=== PATIENT | female | born 1995 | race Caucasian/White ===

== ENCOUNTER 2018-09-02 10:26 | Emergency (ER) | payer OTHER ==
[2018-09-02] MEDS: KETOROLAC 30 MG/ML VIAL (J1885) IV (11:25)
[2018-09-02] MEDS: diphenhydrAMINE INJ 50MG/ML VIAL (J1200) IV (11:25)
[2018-09-02] MEDS: METOCLOPRAMIDE INJ 10MG/2ML VIAL (J2765) IV (11:26)
== END 2018-09-02 13:08 | disposition home or self-care (01) ==
LOC: M ED 10:26
DX: G40.909 Epilepsy, unspecified, not intractable, without status epilepticus (principal); R51 Headache; Z79.2 Long term (current) use of antibiotics; Z79.899 Other long term (current) drug therapy; Z88.8 Allergy status to other drugs, medicaments and biological substances; Z91.018 Allergy to other foods
CPT/HCPCS: J1200

== ENCOUNTER 2018-11-04 01:15 | Emergency (ER) | payer OTHER ==
[~2018-11-04] VITALS: Ht 157.5 cm; Wt 68.2 kg
[~2018-11-04 01:15] MED LIST: KEPP500T13; METO1TAB7; TRI-TAB PO
[2018-11-04] MEDS ORDERED: NORT10CA2 (01:24)
[2018-11-04] MEDS ORDERED: NS 1,000 ML IV ONE (02:00)
[2018-11-04 02:04] LABS: HEMOGLOBIN 13.5 g/dl (12.0-15.5); MEAN CORPUSCULAR HEMOGLOBIN 31.4 pg (27.0-33.0); MEAN CORPUSCULAR HGB CONC 34.6 g/dl (32.0-36.5); MEAN CORPUSCULAR VOLUME 90.7 fl (80.0-96.0); PLATELET COUNT, AUTOMATED 246 10^3/uL (150-450); WHITE BLOOD COUNT 7.8 10^3/uL (4.0-10.0)
[2018-11-04 02:13] LABS: BLOOD UREA NITROGEN 7 MG/DL (7-18); CARBON DIOXIDE LEVEL 19 MEQ/L (21-32); CHLORIDE LEVEL 109 MEQ/L (98-107); CREATININE FOR GFR 0.84 MG/DL (0.55-1.30); GLOMERULAR FILTRATION RATE > 60.0 (>60); GLUCOSE, FASTING 97 MG/DL (70-100); POTASSIUM SERUM 3.9 MEQ/L (3.5-5.1); SODIUM LEVEL 140 MEQ/L (136-145)
[2018-11-04 02:21] LABS: HCG, SERUM QUALITATIVE NEGATIVE (NEGATIVE)
[2018-11-04 03:07] LABS: ATYPICAL LYMPH 5 % (0-5); EOSINOPHILS 1 % (0-5); LYMPHOCYTES 60 % (16-52); MONOCYTES 5 % (0-8); NEUTROPHILS 29 % (35-75)
[2018-11-04 03:08] LABS: PLATELET ESTIMATE NORMAL (NORMAL); TEAR DROP CELLS 1+
[2018-11-04 03:32] VITALS: BP 100/62
--- NOTE | 2018-11-04 07:53 | ECGEPIP ---
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
== END 2018-11-04 03:33 | disposition home or self-care (01) ==
LOC: EDBD 01:15 → M ED 01:15
DX: R56.9 Unspecified convulsions (principal); R00.0 Tachycardia, unspecified; G43.809 Other migraine, not intractable, without status migrainosus; Z79.899 Other long term (current) drug therapy; Z91.018 Allergy to other foods

== ENCOUNTER 2018-11-14 22:28 | Emergency (ER) | payer OTHER ==
[~2018-11-14] VITALS: Ht 157.5 cm; Wt 68.2 kg
[~2018-11-14 22:28] MED LIST changes: +NORT10CA2
[2018-11-14] MEDS ORDERED: NS 1,000 ML IV ONE (23:15)
[2018-11-14] MEDS ORDERED: METOCLOPRAMIDE INJ 10MG/2ML VIAL (J2765) IV ONE (23:15)
[2018-11-14 23:32] LABS: BASO % 0.1 % (0.0-1.0); EOS # 0.1 10^3/uL (0.0-0.50); EOS % 0.4 % (0.0-3.0); HEMATOCRIT 41.4 % (36.0-47.0); HEMOGLOBIN 14.1 g/dl (12.0-15.5); LYMPH # 1.1 10^3/uL (1.5-6.5); LYMPH % 8.2 % (24.0-44.0); MEAN CORPUSCULAR HEMOGLOBIN 31.3 pg (27.0-33.0); MEAN CORPUSCULAR HGB CONC 34.1 g/dl (32.0-36.5); MEAN CORPUSCULAR VOLUME 91.8 fl (80.0-96.0); MONO # 0.7 10^3/uL (0.0-0.8); MONO % 5.2 % (0.0-5.0); NEUTROPHILS % 85.7 % (36.0-66.0); PLATELET COUNT, AUTOMATED 277 10^3/uL (150-450); RED BLOOD COUNT 4.51 10^6/uL (4.00-5.40); WHITE BLOOD COUNT 13.9 10^3/uL (4.0-10.0)
[2018-11-15] LABS: ALBUMIN 4.2 GM/DL (3.2-5.2); ALT/SGPT 20 U/L (12-78); BILIRUBIN,DIRECT 0.1 MG/DL (0.0-0.2); BILIRUBIN,TOTAL 0.6 MG/DL (0.2-1.0); BLOOD UREA NITROGEN 9 MG/DL (7-18); CARBON DIOXIDE LEVEL 25 MEQ/L (21-32); CHLORIDE LEVEL 105 MEQ/L (98-107); CREATININE FOR GFR 0.85 MG/DL (0.55-1.30); GLOMERULAR FILTRATION RATE > 60.0 (>60); GLUCOSE, FASTING 105 MG/DL (70-100); LIPASE 56 U/L (73-393); POTASSIUM SERUM 4.1 MEQ/L (3.5-5.1); SODIUM LEVEL 138 MEQ/L (136-145); TOTAL PROTEIN 7.7 GM/DL (6.4-8.2)
[2018-11-15 00:29] LABS: HCG, SERUM QUALITATIVE NEGATIVE (NEGATIVE)
[2018-11-15] MEDS ORDERED: NS 1,000 ML IV ONE (01:00)
[2018-11-15 01:45] VITALS: BP 109/58
[2018-11-15] MEDS ORDERED: ZOFR4TAB14 PO (01:54)
== END 2018-11-15 02:06 | disposition home or self-care (01) ==
LOC: M ED 22:28
DX: K52.9 Noninfective gastroenteritis and colitis, unspecified (principal); E86.0 Dehydration; G40.909 Epilepsy, unspecified, not intractable, without status epilepticus; Z20.828 Contact with and (suspected) exposure to other viral communicable diseases; Z91.018 Allergy to other foods; Z79.899 Other long term (current) drug therapy
CPT/HCPCS: 80048; 80076; 83690; 84703; 85025; 96374; 99284; J2765

== ENCOUNTER 2019-01-21 12:04 | Emergency (ER) | payer OTHER ==
[~2019-01-21] VITALS: Ht 157.5 cm; Wt 70.9 kg
[~2019-01-21 12:04] MED LIST changes: +ZOFR4TAB14 PO
[2019-01-21] MEDS ORDERED: APTI1TAB4 (12:14)
[2019-01-21] MEDS ORDERED: TOPI25TA10 (12:14)
[2019-01-21 13:05] LABS: BASO % 0.4 % (0.0-1.0); HEMATOCRIT 39.8 % (36.0-47.0); HEMOGLOBIN 13.3 g/dl (12.0-15.5); LYMPH # 2.2 10^3/uL (1.5-6.5); LYMPH % 31.6 % (24.0-44.0); MEAN CORPUSCULAR HEMOGLOBIN 30.9 pg (27.0-33.0); MEAN CORPUSCULAR HGB CONC 33.4 g/dl (32.0-36.5); MEAN CORPUSCULAR VOLUME 92.3 fl (80.0-96.0); MONO # 0.4 10^3/uL (0.0-0.8); MONO % 5.6 % (0.0-5.0); NEUTROPHILS # 4.3 10^3/uL (1.8-7.7); NEUTROPHILS % 62.1 % (36.0-66.0); PLATELET COUNT, AUTOMATED 256 10^3/uL (150-450); RED BLOOD COUNT 4.31 10^6/uL (4.00-5.40)
[2019-01-21 13:31] LABS: ALT/SGPT 16 U/L (12-78); BILIRUBIN,TOTAL 0.3 MG/DL (0.2-1.0); BLOOD UREA NITROGEN 8 MG/DL (7-18); C REACTIVE PROTEIN QUANTITATIV 1.38 MG/DL (0.00-0.30); CALCIUM LEVEL 8.3 MG/DL (8.5-10.1); CARBON DIOXIDE LEVEL 26 MEQ/L (21-32); CHLORIDE LEVEL 106 MEQ/L (98-107); GLOMERULAR FILTRATION RATE > 60.0 (>60); GLUCOSE, FASTING 91 MG/DL (70-100); HCG, SERUM QUANTITATIVE < 1.0 MIU/ML; POTASSIUM SERUM 4.7 MEQ/L (3.5-5.1); SODIUM LEVEL 137 MEQ/L (136-145); TOTAL PROTEIN 7.6 GM/DL (6.4-8.2)
[2019-01-21] MEDS ORDERED: ISOVUE-370 76% 125ML VIAL (Q9967 PER ML) As Ordered ONE (13:55)
[2019-01-21] MEDS ORDERED: KETOROLAC 30 MG/ML VIAL (J1885) IV ONE (14:00)
[2019-01-21] MEDS ORDERED: ONDANSETRON 4MG/2ML VIAL (J2405) IV ONE (14:00)
[2019-01-21] MEDS ORDERED: DOXY100C37 PO ×2 (18:12→18:19)
[2019-01-21] MEDS ORDERED: IBUP-1022 PO ×2 (18:12→18:19)
[2019-01-21] MEDS ORDERED: cefTRIAXone SOD 250 MG VIAL (J0696) IM ONE (18:15)
[2019-01-21] MEDS ORDERED: LIDOCAINE 1% SDV 5 ML VIAL DILUENT ONE (18:15)
[2019-01-21 18:25] VITALS: BP 112/71
[2019-01-21] MEDS ORDERED: DOXYCYCLINE HYCLATE 100 MG TAB PO ONE (18:30)
[2019-01-21 19:09] LABS: CHLAMYDIA DNA AMPLIFICATION NEGATIVE (NEGATIVE); GC DNA AMPLIFICATION NEGATIVE (NEGATIVE)
--- NOTE | 2019-01-22 06:50 | REP ---
CT ABDOMEN AND PELVIS WITH CONTRAST: HISTORY: Bilateral lower abdominal pain. CONTRAST: Isovue 370, 100 mL. The liver, gallbladder, pancreas, spleen, adrenal glands, and kidneys are normal in appearance. There is no mass or adenopathy. A small amount of free fluid is present in the abdomen. The visualized lungs are clear. The urinary bladder is normal in appearance. There is patchy heterogeneous enhancement of the uterus. A mild amount of free fluid is present in the pelvis. The appendix is not seen. There is no appendicolith or abscess. IMPRESSION: 1. There is a small amount of free fluid in the abdomen and a mild amount of free fluid in the pelvis. 2. There is mild patchy heterogeneous enhancement of the uterus. The significance of this is uncertain. Ultrasound may be helpful for further evaluation if clinically indicated. Electronically Signed by Fabian Pak MD 01/22/2019 07:27 A
--- NOTE | 2019-01-22 07:01 | REP ---
NON-OB PELVIC ULTRASOUND: HISTORY: Pelvic pain. The uterus measures 4.1 cm in transverse by 3.1 cm in AP by 7.6 cm in cephalocaudal dimensions. The endometrium measures 4.8 mm. The right ovary measures 2.5 x 3 x 1.7 cm. The left ovary measures 2.8 x 2.4 x 2.1 cm. A hemorrhagic follicle is present in the left ovary. This measures 1.4 cm in width. A mild to moderate amount of free fluid is present. IMPRESSION: 1. 1.4 cm hemorrhagic left ovarian follicle. 2. Mild to moderate amount of free fluid. Electronically Signed by Fabian Pak MD 01/22/2019 07:28 A
== END 2019-01-21 18:39 | disposition home or self-care (01) ==
LOC: M ED 12:04
DX: R10.2 Pelvic and perineal pain (principal); N94.10 Unspecified dyspareunia; N83.02 Follicular cyst of left ovary; R56.9 Unspecified convulsions; Z79.3 Long term (current) use of hormonal contraceptives; Z91.018 Allergy to other foods
CPT/HCPCS: 74177; 76830; 76856; 80053; 81001; 81025; 84702; 85025; 86140; 87210; 87491; 87591; 93976; 96372; 96374; 96375; 99284; J0696; J1885; J2405; Q9967